=== PATIENT | female | born 1955 | race Caucasian/White ===

== ENCOUNTER 2016-11-04 13:15 | Emergency (ER) | payer OTHER | END 2016-11-04 13:40 | disposition left against medical advice (07) | LOC: UCCORT 13:15 | DX: R09.89 Other specified symptoms and signs involving the circulatory and respiratory systems (principal); Z53.21 Procedure and treatment not carried out due to patient leaving prior to being seen by health care provider ==

== ENCOUNTER 2016-11-04 14:48 | Emergency (ER) | payer BC, OTHER ==
[2016-11-04 15:58] VITALS: BP 117/49
--- NOTE | 2016-11-04 16:42 | UC ---
Respiratory Complaint HPI - HPI Summary HPI Summary: pt presents with worsening productive cough. Pt has history, multiple cancers, COPD and is a Current day smoker - History of Current Complaint Chief Complaint: UCRespiratory Stated Complaint: HEAD AND CHEST CONGESTION Time Seen by Provider: 11/04/16 15:50 Hx Obtained From: Patient ?: No Onset/Duration: Gradual Onset, Lasting Days Timing: Constant Severity Initially: Mild Severity Currently: Moderate Character: Cough: Productive - yellow Aggravating Factors: Exertion, Deep Breaths, Recumbent Position Alleviating Factors: Nothing Associated Signs And Symptoms: Positive: URI - Risk Factors Pulmonary Embolism Risk Factors: Malignancy, Smoking Cardiac Risk Factors: Smoking Pseudomonas Risk Factors: Chronic Lung Disease Tuberculosis Risk Factors: Smoking - Allergies/Home Medications Allergies/Adverse Reactions: Allergies Allergy/AdvReac Type Severity Reaction Status Date / Time Morphine AdvReac Intermediate Nausea And Verified 11/04/16 15:49 Vomiting PMH/Surg Hx/FS Hx/Imm Hx Previously Healthy: Yes Respiratory History: Bronchitis Cancer History: Lung Cancer, Breast Cancer, Other - lymphoma Other Cancer History: lymphoma - Surgical History Surgical History: Yes Surgery Procedure, Year, and Place: PARTIAL HYSTERECTOMY 1986; 1981 CERVICAL CA ; OBSTRUCTION OF THE BOWEL 2004 RESECTION SX; HEMORRHOIDS SX 2011; 2X THROAT POLYPS REMOVED 2002 & 2005 OR 2005;HEIMLICH VAVLE AND CHEST TUBE FOR PUNCTURED RUL LUNG DURING THE BX 2012 @ [facility] [place]; BILAT CATARACT REMOVED 2014 ,. CYST REMOVED FROM LEFT AXILLA 2014. Lt MASTECTOMY 01/12/16 W/ LYMPH NODE DISSECTION. - Family History Known Family History: Positive: Cardiac Disease - Social History Lives: With Family Alcohol Use: None Substance Use Type: Marijuana Substance Use Comment - Amount & Last Used: daily usage Smoking Status (MU): Heavy Every Day Tobacco Smoker Type: Cigarettes Amount Used/How Often: 1 PPD FOR 38 YRS Length of Time of Smoking/Using Tobacco: 1 PPD FOR 38 YRS, CURRENTLY SMOKES 5 CIGARETTES/DAY Have You Smoked in the Last Year: Yes When Did the Patient Quit Smoking/Using Tobacco: 01/2016 - Immunization History Most Recent Tetanus Shot: 2007 Review of Systems Constitutional: Fatigue Skin: Negative Eyes: Negative ENT: Other - nasal congestion Respiratory: Shortness Of Breath, Cough Cardiovascular: Negative Gastrointestinal: Negative Genitourinary: Negative Motor: Negative Neurovascular: Negative Musculoskeletal: Negative Neurological: Negative Psychological: Negative All Other Systems Reviewed And Are Negative: Yes Physical Exam Triage Information Reviewed: Yes Appearance: Ill-Appearing, Thin Vital Signs: Initial Vital Signs Temp 98.7 F 11/04/16 15:41 Pulse 88 11/04/16 15:41 Resp 16 11/04/16 15:41 BP 117/49 11/04/16 15:41 Pulse Ox 99 11/04/16 15:41 Vital Signs Reviewed: Yes ENT: Positive: Nasal congestion Neck exam: Normal Respiratory Exam: Other Respiratory: Positive: Decreased breath sounds - bilateral bases, Wheezing Cardiovascular Exam: Normal Musculoskeletal Exam: Normal Neurological Exam: Normal Psychological Exam: Normal Skin Exam: Normal UC Diagnostic Evaluation - Laboratory O2 Sat by Pulse Oximetry: 99 Respiratory Course/Dx - Course Course Of Treatment: Pt has history of lung cancer. xray impression:IMPRESSION : 1. MARKED HYPERINFLATION CONSISTENT WITH CHRONIC OBSTRUCTIVE PULMONARY DISEASE, NO. EVIDENCE FOR ACUTE FINDING. 2. POSSIBLE RIGHT LUNG PULMONARY NODULE VERSUS A NIPPLE SHADOW. RECOMMEND REPEAT PA CHEST. FILM WITH NIPPLE MARKERS. Pt is scheduled for chest CT and Brain MRI in the next month - Differential Dx/Diagnosis Differential Diagnosis/HQI/PQRI: Bronchitis, Exacerbation Of COPD Provider Diagnoses: bronchitis Discharge - Discharge Plan Condition: Stable Disposition: HOME Prescriptions: Azithromycin TAB* [Zithromax TAB (Z-GLORIA) 250 mg #6 tabs] 250 mg PO DAILY #6 tab Prednisone 20 mg PO DAILY #4 tab Patient Education Materials: Acute Bronchitis (ED) Referrals: Remigio Lindsay MD [Primary Care Provider] - If Needed Claudio Garza MD [Medical Doctor] - If Needed
--- NOTE | 2016-11-04 17:18 | RAD ---
INDICATION: Cough and shortness of breath. COMPARISON: Comparison is made with a prior chest x-ray study from December 29, [address] of the chest from December 29, 2015. TECHNIQUE: Dual-energy PA and lateral views of the chest were obtained. FINDINGS: The heart is within normal limits in size. Mediastinal and hilar contours appear within normal limits. The lungs are markedly hyperinflated with pleural reaction present at the right lung apex which is unchanged from the prior CT of the chest taken in account differences in technique. There is a 5 mm nodular density which projects over the right midlung possibly representing a nipple shadow although nonspecific. The lungs are otherwise clear. No pleural effusion is seen. IMPRESSION: 1. MARKED HYPERINFLATION CONSISTENT WITH CHRONIC OBSTRUCTIVE PULMONARY DISEASE, NO EVIDENCE FOR ACUTE FINDING. 2. POSSIBLE RIGHT LUNG PULMONARY NODULE VERSUS A NIPPLE SHADOW. RECOMMEND REPEAT PA CHEST FILM WITH NIPPLE MARKERS.
== END 2016-11-04 17:02 | disposition home or self-care (01) ==
LOC: UCCORT 14:48
DX: J40 Bronchitis, not specified as acute or chronic (principal); Z85.118 Personal history of other malignant neoplasm of bronchus and lung; Z85.3 Personal history of malignant neoplasm of breast; Z85.72 Personal history of non-Hodgkin lymphomas; Z90.12 Acquired absence of left breast and nipple; Z98.42 Cataract extraction status, left eye; Z98.41 Cataract extraction status, right eye; Z88.5 Allergy status to narcotic agent; F12.90 Cannabis use, unspecified, uncomplicated; F17.210 Nicotine dependence, cigarettes, uncomplicated
CPT/HCPCS: 71020; 99212; G0463

== ENCOUNTER 2017-02-01 15:24 | Emergency (ER) | payer BC ==
[2017-02-01] MEDS ORDERED: Pantoprazole IV* 40 MG IV ONE (15:47)
[2017-02-01] MEDS ORDERED: Ondansetron INJ* 2 MG/ML VIAL IV ONE (15:47)
[2017-02-01] MEDS ORDERED: LORazepam INJ* 2 MG/ML 1 ML VIAL IV PUSH ONE (15:52)
[2017-02-01 16:15] LABS: Hematocrit 37 % (35-47); Hemoglobin 12.4 g/dl (12.0-16.0); Mean Corpuscular HGB Conc 34 g/dl (31-36); Mean Corpuscular Hemoglobin 33 pg (27-31); Mean Corpuscular Volume 98 fL (80-97); Mean Platelet Volume 8 um3 (7.4-10.4); Red Blood Count 3.75 10^6/ul (4.0-5.4); Red Cell Distribution Width 14 % (10.5-15); White Blood Count 6.8 10^3/ul (3.5-10.8)
[2017-02-01] MEDS: NS 0.9% 1000 ML* 2,000 ML IV ONE ×2 (16:15→18:59)
[2017-02-01 16:47] LABS: ALT 11 U/L (7-52); AST 22 U/L (13-39); Albumin 4.1 g/dL (3.2-5.2); Alkaline Phosphatase 44 U/L (34-104); Amylase 23 U/L (29-103); Anion Gap 9 mmol/L (2-11); BUN/Creatinine Ratio 17.8 (8-20); Blood Urea Nitrogen 16 mg/dL (6-24); C Reactive Protein < 1.00 mg/L (< 5.00); CO2 Carbon Dioxide 24 mmol/L (22-32); Calcium 9.1 mg/dL (8.6-10.3); Chloride 100 mmol/L (101-111); EGFR African American 81.9 (>60); EGFR Non-African American 63.7 (>60); Globulin 2.5 g/dL (2-4); Glucose 92 mg/dL (70-100); Lipase < 10 U/L (11.0-82.0); Magnesium 1.6 mg/dL (1.9-2.7); Potassium 3.2 mmol/L (3.5-5.0); Sodium 133 mmol/L (133-145); Total Protein 6.6 g/dL (6.4-8.9)
[2017-02-01 16:48] LABS: Troponin I 0.02 ng/mL (<0.04)
[2017-02-01] MEDS ORDERED: KCL 20 MEQ/100 ML IVPREMIX* 20 MEQ/100 ML BAG IV ONE (16:54)
[2017-02-01] MEDS ORDERED: Magnesium Sulfate 2 GM IV* 2 GM/50 ML BAG IVPB ONE (16:55)
[2017-02-01] MEDS ORDERED: fentaNYL* 50 MCG/ML 2 ML VIAL (100 MCG VIAL) IV SLOW PU ONE ×2 (17:07→18:50)
[2017-02-01] MEDS ORDERED: NS 0.9% 1000 ML* 1,000 ML IV ONE (17:44)
--- NOTE | 2017-02-01 18:54 | ED ---
Mirta Forbes Edward, scribed for Henrique Garsia MD on 02/01/17 at 1536 . Complex/Multi-Sys Presentation - HPI Summary HPI Summary: 61 y/o female presents to the ED c/o constant nausea and intermittent vomiting for the past 4 days. Pt would vomit every 15 minutes for the first three days. Pt c/o diarrhea that started this morning. Pt c/o decreased PO intake. Pt also c /o of ABD pain in the RLQ near midline. The ABD pain is not severe and is aggravated with vomiting and diarrhea. Associated sx: cough, lightheadedness and dizziness. Denies fevers/chills. PMHx 5 time cancer survivor. Former smoker. - History Of Current Complaint Chief Complaint: EDGeneral Time Seen by Provider: 02/01/17 15:32 Hx Obtained From: Patient Onset/Duration: Lasting Days Location: Pain At: - RLQ ABD Associated Signs And Symptoms: Positive: Dizziness, Cough, Nausea, Vomiting, Diarrhea, Abdominal Pain - RLQ, Other - Lightheadedness. Negative: Fever - Allergies/Home Medications Allergies/Adverse Reactions: Allergies Allergy/AdvReac Type Severity Reaction Status Date / Time Morphine AdvReac Intermediate Nausea And Verified 11/04/16 15:49 Vomiting PMH/Surg Hx/FS Hx/Imm Hx Previously Healthy: No Endocrine/Hematology History: Denies: Hx Bone Marrow Disease, Hx Diabetes, Hx Systemic Lupus Erythematosus , Hx Sickle Cell Disease, Hx Anemia, Hx Unexplained Bleeding Cardiovascular History: Denies: Hx Aneurysm, Hx Angina, Hx Angioplasty, Hx Auto Implanted Cardiovert Defib, Hx Cardiac Arrest, Hx Cardiomegaly, Hx Congenital Heart Disease, Hx Congestive Heart Failure, Hx Coronary Artery Disease, Hx Deep Vein Thrombosis, Hx Embolism, Hx Hypercholesterolemia, Hx Hypotension, Hx Hypertension, Hx Pacemaker/ICD, Hx Peripheral Vascular Disease, Hx Rheumatic Fever, Hx Syncope, Hx Valvular Heart Disease, Other Cardiovascular Problems/Disorders Respiratory History: Reports: Hx Chronic Obstructive Pulmonary Disease (COPD), Hx Lung Cancer, Hx Pulmonary Embolism - BLOOD CLOT FROM LUNG CANCER, Other Respiratory Problems/Disorders - COPD DX, HX OF LUNG CANCER 2012 Denies: Hx Asthma, Hx Chronic Bronchitis, Hx Cystic Fibrosis, Hx Pleural Effusion, Hx Pneumonia, Hx Pulmonary Edema, Hx Seasonal Allergies, Hx Sleep Apnea GI History: Reports: Hx Gastroesophageal Reflux Disease - ON MEDS PT. STATES CONTROLLED, Hx Obstructive Bowel - Colon resection, Other GI Disorders - nausea , CONSTIPATION Denies: Hx Cirrhosis, Hx Crohn's Disease, Hx Diverticulosis, Hx Gall Bladder Disease, Hx Gastrointestinal Bleed, Hx Hiatal Hernia, Hx Irritable Bowel, Hx Jaundice, Hx Ileostomy, Hx Pyloric Stenosis, Hx Ulcer History: Denies: Hx Acute Renal Failure, Hx Benign Prostatic Hyperplasia, Hx Chronic Renal Failure, Hx Dialysis, Hx Kidney Infection, Hx Kidney Stones, Hx Renal Disease, Other Problems/Disorders Musculoskeletal History: Reports: Hx Arthritis, Hx Back Problems - T12 FX, Hx Bursitis - RIGHT HIP, Other Musculoskeletal History - FRACTURE T 12 2007 NOT TX AT THE TIME OF ACCIDENT Denies: Hx Rheumatoid Arthritis, Hx Congenital Bone Abnormalities, Hx Fibromyalgia, Hx Gout, Hx Orthopedic Injury, Hx Osteoporosis, Hx Scoliosis, Hx Tendonitis Sensory History: Reports: Hx Cataracts - BILAT, Hx Contacts or Glasses - GLASSES , Other Sensory Impairments - Epilepsy Denies: Hx Eye Injury, Hx Eye Prosthesis, Hx Glaucoma, Hx Macular Degeneration, Hx Vision Problem, Hx Deafness, Hx Hearing Aid, Hx Hearing Problem Opthamlomology History: Reports: Hx Cataracts - BILAT, Hx Contacts or Glasses - GLASSES, Other Sensory Impairments - Epilepsy Denies: Hx Eye Injury, Hx Eye Prosthesis, Hx Glaucoma, Hx Macular Degeneration, Hx Vision Problem Neurological History: Reports: 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 STATES CONTROLLED Denies: Hx Panic Disorder - Cancer History Cancer Type, Location and Year: BREAST,OVARIAN & CERVICAL CA. NONHODGEKINS lymphoma. LUNG and breast CA Hx Chemotherapy: Yes - 05/14 LUNG CANCER TX WITH CHEMO AND RADIATION OVARIAN CANCER Hx Radiation Therapy: Yes - CERIVAL, NON HOTCHINS LYMPHOMA, BREAST - Surgical History Surgery Procedure, Year, and Place: PARTIAL HYSTERECTOMY 1986; 1981 CERVICAL CA ; OBSTRUCTION OF THE BOWEL 2004 RESECTION SX; HEMORRHOIDS SX 2011; 2X THROAT POLYPS REMOVED 2002 & 2004 OR 2005;HEIMLICH VAVLE AND CHEST TUBE FOR PUNCTURED RUL LUNG DURING THE BX 2012 @ [facility] – [place]; BILAT CATARACT REMOVED 2014 ,. CYST REMOVED FROM LEFT AXILLA 2014. Lt MASTECTOMY 01/12/16 W/ LYMPH NODE DISSECTION. Hx Anesthesia Reactions: No Infectious Disease History: Denies: Hx Clostridium Difficile, Hx Hepatitis, Hx Human Immunodeficiency Virus (HIV), Hx Shingles, Hx Tuberculosis, Traveled Outside the [place] in Last 30 Days - Family History Known Family History: Positive: Cardiac Disease - Social History Alcohol Use: None Hx Substance Use: Yes Substance Use Type: Reports: Marijuana Substance Use Comment - Amount & Last Used: daily usage Hx Tobacco Use: Yes Smoking Status (MU): Heavy Every Day Tobacco Smoker Type: Cigarettes Amount Used/How Often: 1 PPD FOR 38 YRS Length of Time of Smoking/Using Tobacco: 1 PPD FOR 38 YRS, CURRENTLY SMOKES 5 CIGARETTES/DAY Have You Smoked in the Last Year: Yes Review of Systems Constitutional: Negative Eyes: Negative ENT: Negative Cardiovascular: Negative Positive: Cough Positive: Abdominal Pain, Vomiting, Diarrhea, Nausea, Other - Decreased PO intake Genitourinary: Negative Musculoskeletal: Negative Skin: Negative Neurological: Other - Lightheadedness and dizziness Psychological: Normal All Other Systems Reviewed And Are Negative: Yes Physical Exam - Summary Physical Exam Summary: The patient is well-nourished in moderate distress and cachectic. The patient seems uncomfortable. The skin is warm and dry and skin color reflects adequate perfusion. HEENT: The head is normocephalic and atraumatic. The pupils are equal and reactive. The conjunctivae are clear and without drainage. Nares are patent and without drainage. Mouth reveals dry mucous membranes and the throat is without erythema and exudate. The external ears are intact. The ear canals are patent and without drainage. The tympanic membranes are intact. Neck is supple with full range of motion and non-tender. There are no carotid bruits. There is no neck vein distension. Respiratory: Chest is non-tender. Lungs are clear to auscultation and breath sounds are symmetrical and equal. Cardiovascular: Hear is regular rate and rhythm. There is no murmur or rub auscultated. There is no peripheral edema and pulses are symmetrical and equal. Abdomen: The abdomen is soft and tender around the umbilicus. There are normal bowel sounds heard in all four quadrants and there is no organomegaly palpated. Musculoskeletal: There is no back pain noted. Extremities are non-tender with full range of motion. There is decreased capillary refill. There is no peripheral edema or calf tenderness elicited. Neurological: Patient is alert and oriented to person, place and time. The patient has symmetrical motor strength in all four extremities. Cranial nerves are grossly intact. Deep tendon reflexes are symmetrical and equal in all four extremities. Skin: There is decreased skin turgor. Psychiatric: The patient has an appropriate affect and does not exhibit any anxiety or depression. Triage Information Reviewed: Yes Vital Signs On Initial Exam: Initial Vitals Temp Pulse Resp BP Pulse Ox 97.3 F 85 20 137/99 97 02/01/17 15:27 02/01/17 15:27 02/01/17 15:27 02/01/17 15:27 02/01/17 15:27 Vital Signs Reviewed: Yes Diagnostics - Vital Signs Vital Signs Temp Pulse Resp BP Pulse Ox 02/01/17 15:27 97.3 F 85 20 137/99 97 - Laboratory Lab Results: Lab Results 02/01/17 02/01/17 02/01/17 Range/Units 15:57 15:57 15:57 WBC 6.8 (3.5-10.8) 10^3/ul RBC 3.75 L (4.0-5.4) 10^6/ul Hgb 12.4 (12.0-16.0) g/dl Hct 37 (35-47) % MCV 98 H (80-97) fL MCH 33 H (27-31) pg MCHC 34 (31-36) g/dl RDW 14 (10.5-15) % Plt Count 314 (150-450) 10^3/ul MPV 8 (7.4-10.4) um3 Neut % (Auto) 72.7 (38-83) % Lymph % (Auto) 13.9 L (25-47) % [place] % (Auto) 12.9 H (1-9) % Eos % (Auto) 0.2 (0-6) % Baso % (Auto) 0.3 (0-2) % Absolute Neuts (auto) 5.0 (1.5-7.7) 10^3/ul Absolute Lymphs (auto) 1.0 (1.0-4.8) 10^3/ul Absolute Monos (auto) 0.9 H (0-0.8) 10^3/ul Absolute Eos (auto) 0 (0-0.6) 10^3/ul Absolute Basos (auto) 0 (0-0.2) 10^3/ul Absolute Nucleated RBC 0 10^3/ul Nucleated RBC % 0 Sodium 133 (133-145) mmol/L Potassium 3.2 L (3.5-5.0) mmol/L Chloride 100 L (101-111) mmol/L Carbon Dioxide 24 (22-32) mmol/L Anion Gap 9 (2-11) mmol/L BUN 16 (6-24) mg/dL Creatinine 0.90 (0.51-0.95) mg/dL Est GFR ( Amer) 81.9 (>60) Est GFR (Non-Af Amer) 63.7 (>60) BUN/Creatinine Ratio 17.8 (8-20) Glucose 92 (70-100) mg/dL Lactic Acid 1.0 (0.5-2.0) mmol/L Calcium 9.1 (8.6-10.3) mg/dL Magnesium 1.6 L (1.9-2.7) mg/dL Total Bilirubin 1.00 (0.2-1.0) mg/dL AST 22 (13-39) U/L ALT 11 (7-52) U/L Alkaline Phosphatase 44 (34-104) U/L Troponin I 0.02 (<0.04) ng/mL C-Reactive Protein < 1.00 (< 5.00) mg/L Total Protein 6.6 (6.4-8.9) g/dL Albumin 4.1 (3.2-5.2) g/dL Globulin 2.5 (2-4) g/dL Albumin/Globulin Ratio 1.6 (1-3) Amylase 23 L (29-103) U/L Lipase < 10 L (11.0-82.0) U/L Result Diagrams: 02/01/17 15:57 02/01/17 15:57 Lab Statement: Any lab studies that have been ordered have been reviewed, and results considered in the medical decision making process. - EKG 1 EKG Rhythm: Sinus Rhythm - @ [address] Segment: Normal EKG Interpretation: 16:15 - Poor R wave progression. Normal axis. No STEMI Re-Evaluation - Re-Evaluation 1 Re-Evaluation Time: 17:06 Change: Unchanged - Still has ABD pain 2 Re-Evaluation Time: 18:15 Change: Improved - Pt is feeling better. Nausea has improved. Pending CT results for disposition Complex Multi-Symp Course/Dx Assessment/Plan: 61 y/o female presents to the ED c/o constant nausea and intermittent vomiting for the past 4 days. Pt would vomit every 15 minutes for the first three days. Pt c/o diarrhea that started this morning. Pt c/o decreased PO intake. Pt also c/o of ABD pain in the RLQ near midline. The ABD pain is not severe and is aggravated with vomiting and diarrhea. Associated sx: cough, lightheadedness and dizziness. Denies fevers/chills. PMHx 5 time cancer survivor. Former smoker. Test results - Potassium 3.2, Magnesium 1.6; will be given both in the ED. EKG 16:15 - SR @ 80 BPM. Poor R wave progression. Normal axis. No STEMI, normal ST segment. Pt will be signed out to Dr. Hancock at shift change pending CT results and UA. - Diagnoses Differential Diagnoses/HQI/PQRI: Metabolic Abnormality, Urinary Tract Infection , Other - sbo, colitis, peptic ulcer disease Provider Diagnoses: Abdominal pain, Dehydration Discharge - Discharge Plan Condition: Stable Disposition: OTHER Discharge Disposition Comment: Sign out to Dr. Hancock at shift change pending CT and urine results. Referrals: Remigio Lindsay MD [Primary Care Provider] - The documentation as recorded by the Mirta brown Edward accurately reflects the service I personally performed and the decisions made by me, Henrique Garsia MD.
[2017-02-01] MEDS ORDERED: Iohexol 300* (CONTRAST) 10 ML SDV IV ONE (19:14)
[2017-02-01 19:15] LABS: Urine Bilirubin Negative (Negative); Urine Glucose Negative (Negative); Urine Nitrite Negative (Negative)
--- NOTE | 2017-02-01 19:54 | RAD ---
INDICATION: Abdominal pain. COMPARISON: Comparison is made with a prior CT of the abdomen and pelvis from December 12, 2016. Correlation is also made with a prior study from December 29, 2015. TECHNIQUE: A CT scan of the abdomen and pelvis was performed with intravenous and oral contrast following intravenous injection of 57 ml of Omnipaque 300 nonionic contrast. Contiguous axial sections were obtained from the lung bases through the symphysis pubis. Images were reconstructed in the coronal and sagittal planes. FINDINGS: The lung bases are clear. No pleural effusion is present. The liver and spleen are normal in size. There is a small area of decreased attenuation present in the anterior aspect of the left hepatic lobe medial segment which appears unchanged from the study from 2015 and likely represents focal fatty infiltration. No other focal abnormalities are seen. No calcified gallstones are noted. The pancreatic duct appears moderately distended which is a new finding from the prior exam. No intra or extra hepatic ductal distention is seen. No focal pancreatic abnormality is noted. The fat planes around the pancreas appear maintained. The kidneys and adrenal glands are normal in size. No hydronephrosis is seen. No significant focal renal abnormality is seen. The aorta is normal in caliber with moderate calcific plaque present. There is an enlarged retrocrural lymph node on the right side measuring 0.9 cm in transverse dimension which appears unchanged. No other enlarged retroperitoneal abdominal or pelvic lymph nodes are seen. The stomach, small and large bowel appear nondistended. The appendix is visualized. There is moderate sigmoid diverticulosis without evidence for diverticulitis. The patient is status post hysterectomy. No free intraperitoneal air or fluid is seen. No significant focal osseous abnormality is seen. IMPRESSION: 1. NEW PANCREATIC DUCTAL DISTENTION. NO MASS IS SEEN. DIFFERENTIAL DIAGNOSIS WOULD INCLUDE PANCREATITIS VERSUS AN OBSTRUCTING PANCREATIC LESION. CONSIDER AN OUTPATIENT CT OF THE PANCREAS STUDY FOR FURTHER EVALUATION. 2. ENLARGED RETROCRURAL LYMPH NODE, UNCHANGED. 3. MODERATE SIGMOID DIVERTICULOSIS WITHOUT EVIDENCE FOR DIVERTICULITIS.
[2017-02-01 23:02] VITALS: BP 102/52
== END 2017-02-01 23:55 ==
LOC: ED 15:24
DX: R10.31 Right lower quadrant pain (principal); E86.0 Dehydration; R11.2 Nausea with vomiting, unspecified; R05 Cough; R42 Dizziness and giddiness; F17.210 Nicotine dependence, cigarettes, uncomplicated
CPT/HCPCS: 36415; 74177; 80053; 81003; 82150; 83605; 83690; 83735; 84484; 85025; 86140; 93005; 99282; J2060; J2405; J3010; J3475; J3480; Q9967

== ENCOUNTER 2017-05-05 13:09 | Inpatient (IN) | payer BC ==
[2017-05-05] MEDS ORDERED: HYDROmorphone INJ* 2 MG/ML CARPUJECT SYRINGE IV SLOW PU PRN (13:17)
[2017-05-05] MEDS ORDERED: Bisacodyl SUPP* 10 MG SUPP PR PRN (13:29)
[2017-05-05] MEDS: Heparin VIAL(*) 5000 UNITS/ML VIAL (FIVE THOUSAND) SUBCUT SCH ×2 (14:45→21:01)
[2017-05-05] MEDS: NS 0.9% 1000 ML* 1,000 ML IV SCH (14:50)
[2017-05-05] MEDS: Ondansetron INJ* 2 MG/ML VIAL IV PRN (15:11)
[2017-05-05] MEDS: PROCHLORPERAZINE INJ 5 MG/ML 2 ML VIAL IV PRN (16:38)
[2017-05-05] MEDS: Famotidine TAB* 20 MG PO SCH (18:46)
[2017-05-05] MEDS: HYDROmorphone INJ* 1 MG/ML CARPUJECT SYRINGE IV SLOW PU PRN (18:46)
[2017-05-05] MEDS: Mometasone/Formoter 200/5 MDI INH SCH (19:16)
[2017-05-05] MEDS: BuPROPion XL* 150 MG TAB.XL PO SCH (21:00)
[2017-05-05] MEDS: Docusate CAP* 100 MG PO SCH (21:00)
[2017-05-05] MEDS: Ondansetron INJ* 2 MG/ML VIAL IV SCH (21:00)
[2017-05-05] MEDS: traZODone TAB* 50 MG TAB PO SCH (21:00)
[2017-05-05] MEDS: oxyCODONE SR TAB(*) 15 MG TAB.SR PO SCH (21:32)
[2017-05-05] MEDS: Albuterol HFA INHALER* 8 gm MDI INH PRN (21:43)
[2017-05-06] MEDS: LORazepam INJ* 2 MG/ML 1 ML VIAL IV PUSH PRN ×3 (02:39→11:41)
[2017-05-06] MEDS: Heparin VIAL(*) 5000 UNITS/ML VIAL (FIVE THOUSAND) SUBCUT SCH ×3 (04:56→22:05)
[2017-05-06] MEDS: HYDROmorphone INJ* 1 MG/ML CARPUJECT SYRINGE IV SLOW PU PRN ×4 (05:35→18:11)
[2017-05-06 05:53] LABS: Hematocrit 30 % (35-47); Hemoglobin 9.8 g/dl (12.0-16.0); Mean Corpuscular HGB Conc 33 g/dl (31-36); Mean Corpuscular Hemoglobin 29 pg (27-31); Mean Corpuscular Volume 89 fL (80-97); Mean Platelet Volume 8 um3 (7.4-10.4); Red Blood Count 3.36 10^6/ul (4.0-5.4); Red Cell Distribution Width 18 % (10.5-15); White Blood Count 5.3 10^3/ul (3.5-10.8)
[2017-05-06] MEDS: Ondansetron INJ* 2 MG/ML VIAL IV PRN ×2 (05:57→18:11)
[2017-05-06 06:08] LABS: Albumin 3.4 g/dL (3.2-5.2); BUN/Creatinine Ratio 12.5 (8-20); Calcium 9.2 mg/dL (8.6-10.3); EGFR African American 69.3 (>60); EGFR Non-African American 53.9 (>60); Total Bilirubin 0.3 mg/dL (0.2-1.0); Total Protein 6.4 g/dL (6.4-8.9)
--- NOTE | 2017-05-06 08:06 | RAD ---
Indication: Assess RIGHT apical pulmonary mass for feasibility of ultrasound-guided biopsy. Comparison: May 01, 2017 PET/CT and April 21, [address] Technique: With the patient sitting leaning forward over a table with the shoulders rotated anteriorly ultrasound of the RIGHT first and second intercostal spaces was performed with limited ultrasound of the LEFT side for comparison. REPORT AND IMPRESSION: The known dominant RIGHT apical mass contiguous with the pleura is not conspicuous by ultrasound due to limited acoustic window at the apex of the thorax. On further review of the PET/CT innumerable segmental regions of subpleural tumor are noted along the posterior RIGHT thorax through the lung base. Given more suitable acoustic window at the more planar posterior thorax at least one of these subpleural nodules is likely adequately conspicuous via an intercostal space to facilitate ultrasound-guided fine-needle aspiration. This was not definitively confirmed while the patient was in the ultrasound department. Examination and assessment discussed with Dr. Jose Elias ARGUELLES 05/05/2017.
[2017-05-06] MEDS: Ondansetron INJ* 2 MG/ML VIAL IV SCH ×2 (08:36→20:31)
[2017-05-06] MEDS: Mometasone/Formoter 200/5 MDI INH SCH ×2 (08:44→20:28)
[2017-05-06] MEDS: Docusate CAP* 100 MG PO SCH ×3 (09:11→21:14)
[2017-05-06] MEDS: oxyCODONE SR TAB(*) 15 MG TAB.SR PO SCH ×2 (09:11→21:15)
[2017-05-06] MEDS: Bisoprolol TAB* 5 MG PO SCH ×3 (09:11→20:29)
[2017-05-06] MEDS: BuPROPion XL* 150 MG TAB.XL PO SCH ×3 (09:11→20:30)
[2017-05-06] MEDS ORDERED: LORazepam INJ* 2 MG/ML 1 ML VIAL IV PUSH ONE (11:40)
[2017-05-06] MEDS: PROCHLORPERAZINE INJ 5 MG/ML 2 ML VIAL IV PRN (12:04)
[2017-05-06] MEDS ORDERED: Gadoteridol* (CONTRAST) 279.3 MG/ML 10 ML IV ONE (14:11)
--- NOTE | 2017-05-06 14:35 | RAD ---
HISTORY: Right-sided weakness, breast cancer, ovarian cancer, cervical cancer, lymphoma COMPARISONS: January 01, 2016 TECHNIQUE: The following sequences were obtained of the head: Sagittal T1-weighted images, axial T2-weighted images, axial FLAIR images, axial susceptibility weighted images, axial T1-weighted images. Additionally, axial diffusion-weighted images were obtained with calculated apparent diffusion coefficients. FINDINGS: HEMORRHAGE/INFARCT: There has been interval development of multiple hemorrhagic versus calcified masses further described below. Elsewhere, there is no hemorrhage or acute infarct. MASSES/SHIFT: There has been interval development of multiple high T1 signal masses suggestive of blood product versus mineralization. The largest is noted within the left precentral gyrus towards the apex measuring 1.2 cm in size. There is associated vasogenic edema. There is no shift. EXTRA-AXIAL SPACES/MENINGES: There are no extra-axial fluid collections. SULCI AND VENTRICLES: The sulci and ventricles are normal in size and position for the patient's stated age. CEREBRUM: There has been interval development of multiple high T1 signal masses including of the right middle frontal gyrus, and left precentral gyrus, measuring up to 1.2 cm in size. There is associated vasogenic edema and extensive mineralization of the adjacent white matter. There is stable bilateral inferior frontal encephalomalacia consistent with remote trauma. BRAINSTEM: There are no focal parenchymal abnormalities. CEREBELLUM: There is an enhancing mass of the left inferior cerebellum with a rim of high T1 signal. This measures approximately 0.9 cm in size. The cerebellar tonsils are normal in size and position. SELLA: The sella is normal. PINEAL: The pineal region is clear. CP ANGLE/TEMPORAL BONES: The labyrinthine structures are grossly normal. VESSELS: Normal flow-voids are noted within the visualized vertebral vasculature. DIFFUSION ABNORMALITIES: There are no diffusion abnormalities. PARANASAL SINUSES/MASTOIDS: The paranasal sinuses are clear. ORBITS: The orbits are unremarkable. BONES AND SOFT TISSUE: No bone or soft tissue abnormalities are noted. OTHER: None IMPRESSION: 1. THERE HAS BEEN INTERVAL DEVELOPMENT OF MULTIPLE MASSES OF THE CEREBRAL HEMISPHERES BILATERALLY IN THE LEFT INFERIOR CEREBELLUM, MOST CONSISTENT WITH METASTATIC DISEASE. 2. THESE LESIONS, AND THE ASSOCIATED ADJACENT WHITE MATTER, DEMONSTRATES HIGH PRECONTRAST T1 SIGNAL SUGGESTIVE OF BLOOD PRODUCT VERSUS MINERALIZATION. 3. THE LARGEST LESION IS NOTED WITHIN THE LEFT PRECENTRAL GYRUS MEASURING UP TO 1.2 CM. THERE IS NO SHIFT.
--- NOTE | 2017-05-06 15:15 | RAD ---
HISTORY: Right-sided weakness, cancer COMPARISONS: PET CT dated May 01, 2017, MRI of the cervical spine dated May 25, 2008, MRI dated October 11, 2008 of the thoracic spine, MRI of the brain dated May 06, 2017 TECHNIQUE: The following sequences were obtained of the full spine: Sagittal T1-weighted images, sagittal and coronal T2-weighted images, sagittal inversion recovery images, axial T1 and T2-weighted images, sagittal and axial postcontrast T1-weighted images. FINDINGS: BRAIN AND SPINAL CORD: As noted on the MRI of the brain performed on same date, there is an enhancing lesion with associated mineralization versus blood product of the left inferior cerebellum. ALIGNMENT: The alignment is normal. VERTEBRAL BODIES: There is multilevel anterolateral marginal osteophyte formation. There is hematopoietic conversion of fatty marrow. JOINTS: There is osteoarthritis of the uncovertebral and facet joints of the costovertebral articulations. MUSCULATURE: Unremarkable INTERVERTEBRAL DISCS: There is diffuse loss of intervertebral disc height and T2 signal throughout the spine. AXIAL IMAGES: On axial images, there is moderate narrowing of the cervical spine at C3-C4, C4-C5, C5-C6, and C6-C7. There is diffuse moderate neuroforaminal narrowing bilaterally of the cervical spine. There is no significant neural foraminal narrowing or central canal stenosis of the thoracic spine. There is moderate bilateral neural foraminal narrowing of the lower lumbar spine. There is no significant central canal stenosis of the lumbar spine. SOFT TISSUES: There are enhancing lesions of the right lung corresponding to the findings noted on PET/CT. OTHER: None. IMPRESSION: 1. NOTED ON THE ACCOMPANYING MRI OF THE BRAIN, THERE IS AN ENHANCING LESION OF THE LEFT INFERIOR CEREBELLUM CONSISTENT WITH METASTATIC DISEASE. 2. DEGENERATIVE DISC DISEASE AND OSTEOARTHRITIS. 3. THERE IS MODERATE NARROWING OF THE CENTRAL CANAL ALONG THE THE CERVICAL SPINE. 4. THERE ARE NO FINDINGS TO SUGGEST METASTATIC DISEASE TO THE SPINE, OR EPIDURAL EXTENSION OF TUMOR 5. THERE IS HEMATOPOIETIC CONVERSION OF THE FATTY MARROW. .
[2017-05-06] MEDS ORDERED: D5W IVPB ONE (17:00)
[2017-05-06] MEDS ORDERED: DEXAMETHASONE IVPB ONE (17:00)
[2017-05-06] MEDS: Famotidine TAB* 20 MG PO SCH (17:25)
[2017-05-06] MEDS ORDERED: Dexamethasone IV* 4 MG/ML 5 ML VIAL (20 MG) ONE (20:24)
[2017-05-06] MEDS: traZODone TAB* 50 MG TAB PO SCH (20:30)
[2017-05-06] MEDS: NS 0.9% 1000 ML* 1,000 ML IV SCH (21:14)
[2017-05-07] MEDS: Albuterol HFA INHALER* 8 gm MDI INH PRN ×2 (00:10→05:42)
[2017-05-07] MEDS: LORazepam INJ* 2 MG/ML 1 ML VIAL IV PUSH PRN ×4 (01:22→23:27)
[2017-05-07] MEDS: Heparin VIAL(*) 5000 UNITS/ML VIAL (FIVE THOUSAND) SUBCUT SCH (05:19)
[2017-05-07] MEDS: BuPROPion XL* 150 MG TAB.XL PO SCH ×2 (07:17→20:58)
[2017-05-07] MEDS: Mometasone/Formoter 200/5 MDI INH SCH ×2 (07:51→21:19)
[2017-05-07] MEDS: oxyCODONE SR TAB(*) 15 MG TAB.SR PO SCH ×3 (08:16→21:51)
[2017-05-07] MEDS: Dexamethasone IV* 4 MG/ML 1 ML (4 MG) IV SLOW PU SCH ×3 (08:16→20:56)
[2017-05-07] MEDS: Ondansetron INJ* 2 MG/ML VIAL IV SCH ×3 (08:16→20:56)
[2017-05-07] MEDS: Docusate CAP* 100 MG PO SCH ×3 (08:17→20:57)
[2017-05-07] MEDS ORDERED: Dexamethasone IV* 8 MG in NS 0.9% 50 ML* 50 ML IVPB SCH (09:00)
[2017-05-07 10:03] LABS: Hematocrit 31 % (35-47); Hemoglobin 9.9 g/dl (12.0-16.0); Mean Corpuscular HGB Conc 32 g/dl (31-36); Mean Corpuscular Hemoglobin 29 pg (27-31); Mean Corpuscular Volume 89 fL (80-97); Mean Platelet Volume 8 um3 (7.4-10.4); Red Blood Count 3.43 10^6/ul (4.0-5.4); Red Cell Distribution Width 20 % (10.5-15); White Blood Count 3.1 10^3/ul (3.5-10.8)
[2017-05-07 10:07] LABS: Add Diff/Slide Review? Slide Review Added; Comments Flag Yes
[2017-05-07 10:14] LABS: Albumin 3.5 g/dL (3.2-5.2); BUN/Creatinine Ratio 11.3 (8-20); Calcium 9.8 mg/dL (8.6-10.3); EGFR African American 67.8 (>60); EGFR Non-African American 52.7 (>60); Potassium 4.2 mmol/L (3.5-5.0); Total Bilirubin 0.3 mg/dL (0.2-1.0); Total Protein 6.5 g/dL (6.4-8.9)
--- NOTE | 2017-05-07 10:27 | PN ---
Progress Note - Progress Note Date of Service: 05/07/17 SOAP: Subjective: overall feeling a little better. right side a little stronger than last night but still very weak. no BM since friday and PRN suppository not administered as she has refused. right arm slightly swollen as well. pain under much better control here. Objective: Vital Signs Temp Pulse Resp BP Pulse Ox 97.7 F 90 16 164/81 94 05/06/17 23:15 05/07/17 07:53 05/07/17 09:31 05/07/17 05:12 05/07/17 07:53 perr eomi op dry exp wheeze throughout, dec bs right side s1 s2 nl soft nt +Bs no LE edema right arm trace edema 2/5 strength right arm and leg Laboratory Results - last 24 hr 05/07/17 05/07/17 09:21 09:31 WBC 3.1 L RBC 3.43 L Hgb 9.9 L Hct 31 L MCV 89 MCH 29 MCHC 32 RDW 20 H Plt Count 314 MPV 8 Neut % (Auto) 80.6 Lymph % (Auto) 8.9 L [place] % (Auto) 10.2 H Eos % (Auto) 0 Baso % (Auto) 0.3 Absolute Neuts (auto) 2.5 Absolute Lymphs (auto) 0.3 L Absolute Monos (auto) 0.3 Absolute Eos (auto) 0 Absolute Basos (auto) 0 Absolute Nucleated RBC 0 Nucleated RBC % 0.1 Sodium 135 Potassium 4.2 Chloride 99 L Carbon Dioxide 27 Anion Gap 9 BUN 12 Creatinine 1.06 H Est GFR ( Amer) 67.8 Est GFR (Non-Af Amer) 52.7 BUN/Creatinine Ratio 11.3 Glucose 124 H Calcium 9.8 Total Bilirubin 0.30 AST 15 ALT 8 Alkaline Phosphatase 70 Total Protein 6.5 Albumin 3.5 Globulin 3.0 Albumin/Globulin Ratio 1.2 Albuterol (Ventolin Hfa Inhaler*) 2 puff INH Q6H PRN PRN Reason: WHEEZING Last Admin: 05/07/17 05:42 Dose: 2 puff Bisacodyl (Dulcolax Supp*) 10 mg [place] DAILY PRN PRN Reason: CONSTIPATION Bisoprolol Fumarate (Zebeta Tab*) 2.5 mg PO 2100 [facility] Last Admin: 05/06/17 20:29 Dose: 2.5 mg Bupropion HCl (Wellbutrin Xl *) 150 mg PO BID [facility] PRN Reason: Protocol Last Admin: 05/07/17 07:17 Dose: Not Given Dexamethasone Sodium Phosphate (Decadron Iv*) 8 mg IV SLOW PU BID [facility] Last Admin: 05/07/17 09:16 Dose: 8 mg Docusate Sodium (Colace Cap*) 100 mg PO BID [facility] Last Admin: 05/07/17 09:16 Dose: 100 mg Famotidine (Pepcid Tab*) 20 mg PO QPM [facility] Last Admin: 05/06/17 17:25 Dose: 20 mg Heparin Sodium (Porcine) (Heparin Vial(*)) 5,000 units SUBCUT Q8HR [facility] Last Admin: 05/07/17 05:19 Dose: Not Given Hydromorphone HCl (Dilaudid Injic*) 1 mg IV SLOW PU Q4H PRN PRN Reason: PAIN Last Admin: 05/06/17 18:11 Dose: 1 mg Sodium Chloride (Ns 0.9% 1000 Ml*) 1,000 mls @ 75 mls/hr IV PER RATE [facility] Last Admin: 05/06/17 21:14 Dose: 75 mls/hr Lorazepam (Ativan Inj*) 0.5 mg IV PUSH Q4H PRN PRN Reason: Anxiety/nausea Last Admin: 05/07/17 05:30 Dose: 0.5 mg Mometasone Furoate/Formoterol Fumar (Dulera 200/5 Mdi*) 2 puff INH BID [facility] Last Admin: 05/07/17 07:51 Dose: 2 inh Ondansetron HCl (Zofran Inj*) 4 mg IV Q8H PRN PRN Reason: NAUSEA Last Admin: 05/06/17 18:11 Dose: 4 mg Ondansetron HCl (Zofran Inj*) 4 mg IV BID [facility] Last Admin: 05/07/17 09:13 Dose: 4 mg Oxycodone HCl (Oxycontin(*)) 15 mg PO Q12HR [facility] Last Admin: 05/07/17 09:16 Dose: 15 mg Polyethylene Glycol/Electrolytes (Miralax*) 17 gm PO DAILY [facility] Prochlorperazine Edisylate (Compazine Inj*) 10 mg IV Q6H PRN PRN Reason: NAUSEA/VOMITING Last Admin: 05/06/17 12:04 Dose: 10 mg Trazodone HCl (Desyrel Tab*) 50 mg PO BEDTIME [facility] Last Admin: 05/06/17 20:30 Dose: 50 mg Assessment: 61 yo F w PMH of limited stage small cell lung cancer now with likely recurrent disease presenting with progressive right sided weakness and found to have brain mets. Plan: Brain Mets: cont IV steroids urgent brain radiation PT consult, unclear yet how much recovery she will have, particularly as the leg has been weak for several days recurrent cancer: likely small cell carcinoma but at risk for nonsmall cell as well discussed with Dr. Moctezuma and will put in for inpatient lung biopsy to facilitate diagnosis and direct care hold heparin sc pending this COPD: wheezing today, will add nebulizer pain: cont current regimen as well controlled constipation: narcotic induced add miralax standing DNR
[2017-05-07] MEDS: Polyethylene Glycol 3350* 17 GM PACKET PO SCH (10:34)
--- NOTE | 2017-05-07 13:41 | RAD ---
Indication: Brain mass. CT of the brain performed for radiation therapy planning. Left frontal lobe as well other enhancing lesions were noted on the prior MRI of the left cerebellar lesion. IMPRESSION: CT of the brain performed for radiation therapy planning.
[2017-05-07] MEDS: NS 0.9% 1000 ML* 1,000 ML IV SCH (15:43)
[2017-05-07] MEDS: Famotidine TAB* 20 MG PO SCH (17:45)
[2017-05-07] MEDS: Bisoprolol TAB* 5 MG PO SCH (20:57)
[2017-05-07] MEDS: traZODone TAB* 50 MG TAB PO SCH (20:58)
[2017-05-08 06:54] LABS: Hematocrit 27 % (35-47); Mean Corpuscular HGB Conc 34 g/dl (31-36); Mean Corpuscular Hemoglobin 30 pg (27-31); Mean Corpuscular Volume 89 fL (80-97); Mean Platelet Volume 8 um3 (7.4-10.4); Red Blood Count 3.02 10^6/ul (4.0-5.4); Red Cell Distribution Width 20 % (10.5-15); White Blood Count 4.9 10^3/ul (3.5-10.8)
[2017-05-08 07:44] LABS: Albumin 3.2 g/dL (3.2-5.2); Calcium 9.2 mg/dL (8.6-10.3); EGFR African American 66.3 (>60); EGFR Non-African American 51.6 (>60); Globulin 2.3 g/dL (2-4); Potassium 4.6 mmol/L (3.5-5.0); Total Bilirubin 0.3 mg/dL (0.2-1.0); Total Protein 5.5 g/dL (6.4-8.9)
[2017-05-08] MEDS: Ondansetron INJ* 2 MG/ML VIAL IV SCH ×2 (07:59→21:42)
[2017-05-08] MEDS: Dexamethasone IV* 4 MG/ML 1 ML (4 MG) IV SLOW PU SCH ×2 (08:01→20:42)
[2017-05-08] MEDS: Docusate CAP* 100 MG PO SCH ×2 (08:03→20:42)
[2017-05-08] MEDS: Polyethylene Glycol 3350* 17 GM PACKET PO SCH (08:03)
[2017-05-08] MEDS: BuPROPion XL* 150 MG TAB.XL PO SCH ×2 (08:04→21:42)
[2017-05-08] MEDS: oxyCODONE SR TAB(*) 15 MG TAB.SR PO SCH ×2 (08:40→15:31)
[2017-05-08] MEDS: Mometasone/Formoter 200/5 MDI INH SCH ×2 (09:05→20:14)
--- NOTE | 2017-05-08 10:15 | PN ---
Progress Note - Progress Note Date of Service: 05/08/17 SOAP: Subjective: []Requesting nebulizers which she uses at home, inhalers helps but wants something else. Still lots of right sided chest pain, constant and averages 5/10. Gets a little relief from long acting. At home did not tolerate PO dilaudid. Used oxycodone in the past with minimal effect. Right arm stronger than two days ago, but still limited movement. Can't lift right leg. Denies PAINTING and dizziness. Still no BM, but has been passing gas. No abd. pain, but will get nauseated and she thinks this is from pain meds. Eating better today so far. Medications: Albuterol (Ventolin Hfa Inhaler*) 2 puff INH Q6H PRN PRN Reason: WHEEZING Last Admin: 05/07/17 05:42 Dose: 2 puff Bisacodyl (Dulcolax Supp*) 10 mg [place] DAILY PRN PRN Reason: CONSTIPATION Bisoprolol Fumarate (Zebeta Tab*) 2.5 mg PO 2100 [facility] Last Admin: 05/07/17 20:57 Dose: 2.5 mg Bupropion HCl (Wellbutrin Xl *) 150 mg PO BID [facility] PRN Reason: Protocol Last Admin: 05/08/17 08:04 Dose: Not Given Dexamethasone Sodium Phosphate (Decadron Iv*) 8 mg IV SLOW PU BID [facility] Last Admin: 05/08/17 08:01 Dose: 8 mg Docusate Sodium (Colace Cap*) 100 mg PO BID [facility] Last Admin: 05/08/17 08:03 Dose: 100 mg Famotidine (Pepcid Tab*) 20 mg PO QPM [facility] Last Admin: 05/07/17 17:45 Dose: 20 mg Hydromorphone HCl (Dilaudid Injic*) 1 mg IV SLOW PU Q4H PRN PRN Reason: PAIN Last Admin: 05/06/17 18:11 Dose: 1 mg Sodium Chloride (Ns 0.9% 1000 Ml*) 1,000 mls @ 75 mls/hr IV PER RATE [facility] Last Admin: 05/07/17 15:43 Dose: 75 mls/hr Lorazepam (Ativan Inj*) 0.5 mg IV PUSH Q4H PRN PRN Reason: Anxiety/nausea Last Admin: 12/06/17 23:27 Dose: 0.5 mg Mometasone Furoate/Formoterol Fumar (Dulera 200/5 Mdi*) 2 puff INH BID [facility] Last Admin: 05/08/17 09:05 Dose: 2 inh Ondansetron HCl (Zofran Inj*) 4 mg IV Q8H PRN PRN Reason: NAUSEA Last Admin: 05/06/17 18:11 Dose: 4 mg Ondansetron HCl (Zofran Inj*) 4 mg IV BID [facility] Last Admin: 05/08/17 07:59 Dose: 4 mg Oxycodone HCl (Oxycontin(*)) 15 mg PO Q12HR [facility] Last Admin: 05/08/17 08:40 Dose: 15 mg Polyethylene Glycol/Electrolytes (Miralax*) 17 gm PO DAILY [facility] Last Admin: 05/08/17 08:03 Dose: 17 gm Prochlorperazine Edisylate (Compazine Inj*) 10 mg IV Q6H PRN PRN Reason: NAUSEA/VOMITING Last Admin: 05/06/17 12:04 Dose: 10 mg Trazodone HCl (Desyrel Tab*) 50 mg PO BEDTIME [facility] Last Admin: 05/07/17 20:58 Dose: 50 mg Objective: [] Vital Signs Temp Pulse Resp BP Pulse Ox 97.6 F 78 16 126/71 99 05/08/17 07:36 05/08/17 09:21 05/08/17 09:21 05/08/17 07:36 05/08/17 09:21 A&Ox3, EOMI, converses easily Right arm with minimal AROM, 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 of foot flexion, limited extension strength 2/4 HRR, no murmur noted LS dim. with harsh wet non-productive cough +BS, abd. soft and non-tender +PP=bilat., no edema Laboratory Results - last 24 hr 05/07/17 05/08/17 05/08/17 09:31 06:11 06:11 WBC 4.9 RBC 3.02 L Hgb 9.0 L Hct 27 L MCV 89 MCH 30 MCHC 34 RDW 20 H Plt Count 339 MPV 8 Neut % (Auto) 89.2 H Lymph % (Auto) 5.1 L [place] % (Auto) 5.6 Eos % (Auto) 0 Baso % (Auto) 0.1 Absolute Neuts (auto) 4.4 Absolute Lymphs (auto) 0.2 L Absolute Monos (auto) 0.3 Absolute Eos (auto) 0 Absolute Basos (auto) 0 Absolute Nucleated RBC 0 Nucleated RBC % 0 INR (Anticoag Therapy) 0.95 APTT 27.1 Sodium 135 139 Potassium 4.2 4.6 Chloride 99 L 103 Carbon Dioxide 27 28 Anion Gap 9 8 BUN 12 13 Creatinine 1.06 H 1.08 H Est GFR ( Amer) 67.8 66.3 Est GFR (Non-Af Amer) 52.7 51.6 BUN/Creatinine Ratio 11.3 12.0 Glucose 124 H 129 H Calcium 9.8 9.2 Total Bilirubin 0.30 0.30 AST 15 16 ALT 8 8 Alkaline Phosphatase 70 64 Total Protein 6.5 5.5 L Albumin 3.5 3.2 Globulin 3.0 2.3 Albumin/Globulin Ratio 1.2 1.4 Assessment: []61 yo female with recurrent cancer,admitted with uncontrolled pain and 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 Biopsy of her right lung lesion planned for this afternoon to determine further plan of care. Plan: []1. Pain: improved and has not required IV med in 24 hours, will add PO with goal of control on PO meds -- recommend nausea meds before 2. Cough: add nebs 3. Partial paralysis: goal of improved function with RT, however may not improve leg d/t timing, will request PT eval. and treat 4. Constipation: recommend scheduling laxative for now 5. Cancer: biopsy planned today, therapy dependent on path
[2017-05-08] MEDS: Albuterol/Ipratropium NEB.SOL* Albuterol 2.5 MG/Ipratropium 0.5 MG 3 ML INH PRN ×2 (11:53→17:25)
--- NOTE | 2017-05-08 14:37 | RAD ---
INDICATION: Metastatic tumor with multifocal RIGHT hemithorax pleural studding. COMPARISON: May 01, 2017 PET/CT. Written informed consent obtained. Timeout performed. PROCEDURE: Pleural-based nodule at the RIGHT approximate 11th posterior intercostal space visualized on preliminary ultrasound scanning with the patient sitting leaning forward. Following routine aseptic skin prep the soft tissues extending from the skin to the nodule were anesthetized with 3 mL 1% lidocaine. Fine-needle aspiration performed under direct ultrasound guidance with a 25-gauge needle. A second pass was made with a new 25-gauge needle. Samples deemed sufficient by pathology. Sterile dressing applied. Procedure well tolerated without immediate complication. IMPRESSION: Successful ultrasound-guided RIGHT pleural fine-needle aspiration.
[2017-05-08] MEDS: Ondansetron INJ* 2 MG/ML VIAL IV PRN (14:46)
[2017-05-08] MEDS: Famotidine TAB* 20 MG PO SCH (17:09)
[2017-05-08] MEDS: LORazepam INJ* 2 MG/ML 1 ML VIAL IV PUSH PRN (17:57)
[2017-05-08] MEDS: traZODone TAB* 50 MG TAB PO SCH (20:42)
[2017-05-08] MEDS: Bisoprolol TAB* 5 MG PO SCH (20:43)
[2017-05-08] MEDS: oxyCODONE TAB* 5 MG TAB PO PRN (23:21)
[2017-05-08] MEDS: PROCHLORPERAZINE INJ 5 MG/ML 2 ML VIAL IV PRN (23:21)
[2017-05-09] MEDS: oxyCODONE SR TAB(*) 15 MG TAB.SR PO SCH ×4 (00:23→23:57)
--- NOTE | 2017-05-09 02:54 | RADMED ---
RADIATION ONCOLOGY INPATIENT CONSULTATION NOTE: DATE OF SERVICE: 05/06/17 - ROOM #413 DIAGNOSIS: New brain metastasis, presumably from lung cancer. HISTORY OF PRESENT ILLNESS: Rosangela Varghese is a 61-year-old woman who I treated in 2012 for limited stage small cell lung cancer. She received chemotherapy as well as thoracic radiation therapy, 4500 cGy at 150 cGy per fraction twice daily, completing radiating on 02/18/13, and subsequently received prophylactic cranial radiation, 2500 cGy, completed in May 2013. She was subsequently treated for breast cancer in 2015. A recent head CT from identified multiple enlarging hypermetabolic masses in the right upper lobe as well as right adrenal and bone metastasis. She developed right-sided weakness, and MRI scan of the brain performed earlier today shows multiple enhancing lesions concerning for brain metastasis with a lesion in the region of the left motor strip with substantial peritumoral edema. She has been ordered for dexamethasone and is referred urgently for consideration of palliative whole brain radiation therapy. PAST MEDICAL HISTORY: Lung cancer and breast cancer as on history of present illness. 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 MEDICATIONS: As per the inpatient record. ALLERGIES: MORPHINE. FAMILY HISTORY: Significant for her brother who had a brain tumor, as well as her mother with colon cancer and a sister with breast cancer. SOCIAL HISTORY: She is a former smoker and does not drink significant amount of alcohol. REVIEW OF SYSTEMS: As in the history of present illness. Otherwise, significant for some chest pain, otherwise a complete review of systems indicates only weakness. PHYSICAL EXAMINATION: Vital Signs: As in the electronic medical record. General: She is awake, alert, and oriented, in no acute distress. Normocephalic , atraumatic. Sclerae are anicteric. Neck: Supple. Full range of motion. Midline trachea. No mass palpable in the neck or thyroid. Lungs with symmetric air entry bilaterally. Cardiovascular: S1, S2 regular. Neurologic: Cranial nerves II through XII are intact. 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 PATHOLOGY AND RADIOLOGY: Reviewed. ASSESSMENT AND PLAN: Rosangela Varghese is a 61-year-old woman with multiple brain metastases in the setting of relapsed versus second primary lung cancer, biopsy pending. I did review the findings on her MRI scan with the patient and considerations for management, with the majority of our discussion focused on the use of palliative whole brain radiation therapy. She did receive prophylactic cranial radiation initially for her small cell lung cancer, and although there is some concern about cumulative dose from 2 courses of treatment and potential risks and side effects, which I reviewed with her in some detail, she does have a progressive acute neurological deficit, and with 4 years' time for recovery since her prior radiation therapy, I do think she is a candidate for additional palliative whole brain radiation therapy. I explained the logistics and rationale for that treatment including risks, benefits, and alternatives as well as the acute and long-term frequent and uncommon toxicities. She is tentatively inclined to proceed, but does want to review with her when she has a chance. He will be here in the morning. She is being started on steroids and I will see her as quickly as possible if she decides to proceed for CT simulation and treatment planning. For her situation , I recommend 3000 cGy at 250 cGy per fraction. Thank you for giving me the opportunity to participate in the care of this very pleasant patient. [id number]/[facility] #: [id number] JENN
[2017-05-09 07:49] LABS: Hematocrit 28 % (35-47); Hemoglobin 9.6 g/dl (12.0-16.0); Mean Corpuscular HGB Conc 34 g/dl (31-36); Mean Corpuscular Hemoglobin 30 pg (27-31); Mean Corpuscular Volume 90 fL (80-97); Mean Platelet Volume 8 um3 (7.4-10.4); Red Blood Count 3.16 10^6/ul (4.0-5.4); Red Cell Distribution Width 21 % (10.5-15); White Blood Count 5.2 10^3/ul (3.5-10.8)
[2017-05-09 08:12] LABS: Albumin 3.3 g/dL (3.2-5.2); BUN/Creatinine Ratio 11.7 (8-20); Calcium 9.5 mg/dL (8.6-10.3); EGFR African American 58.7 (>60); EGFR Non-African American 45.7 (>60); Globulin 2.7 g/dL (2-4); Total Bilirubin 0.3 mg/dL (0.2-1.0)
[2017-05-09] MEDS: BuPROPion XL* 150 MG TAB.XL PO SCH ×2 (08:23→20:24)
[2017-05-09] MEDS: Mometasone/Formoter 200/5 MDI INH SCH ×2 (08:33→20:37)
[2017-05-09] MEDS: Docusate CAP* 100 MG PO SCH ×2 (09:19→20:15)
[2017-05-09] MEDS: oxyCODONE TAB* 5 MG TAB PO PRN ×2 (09:19→17:11)
[2017-05-09] MEDS: Ondansetron INJ* 2 MG/ML VIAL IV SCH ×2 (09:20→20:14)
[2017-05-09] MEDS: Polyethylene Glycol 3350* 17 GM PACKET PO SCH (09:20)
[2017-05-09] MEDS: Dexamethasone IV* 4 MG/ML 1 ML (4 MG) IV SLOW PU SCH ×2 (09:20→20:14)
--- NOTE | 2017-05-09 10:49 | PN ---
Progress Note - Progress Note Date of Service: 05/09/17 SOAP: Subjective: []Doing better, has clear improvement of strength on right side. Can lift coffee cup, moving leg. Still not at baseline. Eating well with Dex, no BM in several days. Has not seen PT yet. Wants to go home as soon as possible. Pain is controlled on current medication. Albuterol (Ventolin Hfa Inhaler*) 2 puff INH Q6H PRN PRN Reason: WHEEZING Last Admin: 05/07/17 05:42 Dose: 2 puff Albuterol/Ipratropium (Duoneb (Albuterol 2.5 Mg/Ipratropium 0.5 Mg)) 1 neb INH [id number] AWAKE PRN PRN Reason: CONGESTION Last Admin: 05/08/17 17:25 Dose: 1 neb Bisacodyl (Dulcolax Supp*) [address] DAILY PRN PRN Reason: CONSTIPATION Last Admin: 05/09/17 09:20 Dose: 10 mg Bisoprolol Fumarate (Zebeta Tab*) 2.5 mg PO 2100 [facility] Last Admin: 05/08/17 20:43 Dose: 2.5 mg Bupropion HCl (Wellbutrin Xl *) 150 mg PO BID [facility] PRN Reason: Protocol Last Admin: 05/09/17 08:23 Dose: Not Given Dexamethasone Sodium Phosphate (Decadron Iv*) 8 mg IV SLOW PU BID [facility] Last Admin: 05/09/17 09:20 Dose: 8 mg Docusate Sodium (Colace Cap*) 100 mg PO BID [facility] Last Admin: 05/09/17 09:19 Dose: 100 mg Famotidine (Pepcid Tab*) 20 mg PO QPM [facility] Last Admin: 05/08/17 17:09 Dose: 20 mg Hydromorphone HCl (Dilaudid Injic*) 1 mg IV SLOW PU Q4H PRN PRN Reason: PAIN Last Admin: 05/06/17 18:11 Dose: 1 mg Lorazepam (Ativan Inj*) 0.5 mg IV PUSH Q4H PRN PRN Reason: Anxiety/nausea Last Admin: 05/08/17 17:57 Dose: 0.5 mg Mometasone Furoate/Formoterol Fumar (Dulera 200/5 Mdi*) 2 puff INH BID [facility] Last Admin: 05/09/17 08:33 Dose: 2 inh Ondansetron HCl (Zofran Inj*) 4 mg IV Q8H PRN PRN Reason: NAUSEA Last Admin: 05/08/17 14:46 Dose: 4 mg Ondansetron HCl (Zofran Inj*) 4 mg IV BID [facility] Last Admin: 05/09/17 09:20 Dose: 4 mg Oxycodone HCl (Roxycodone Tab*) 5 mg PO Q4H PRN PRN Reason: PAIN Last Admin: 05/09/17 09:19 Dose: 5 mg Oxycodone HCl (Oxycontin(*)) 15 mg PO Q8H [facility] Last Admin: 05/09/17 08:22 Dose: Not Given Polyethylene Glycol/Electrolytes (Miralax*) 17 gm PO DAILY [facility] Last Admin: 05/09/17 09:20 Dose: 17 gm Prochlorperazine Edisylate (Compazine Inj*) 10 mg IV Q6H PRN PRN Reason: NAUSEA/VOMITING Last Admin: 05/08/17 23:21 Dose: 10 mg Trazodone HCl (Desyrel Tab*) 50 mg PO BEDTIME [facility] Last Admin: 05/08/17 20:42 Dose: 50 mg Objective: [] Vital Signs Temp Pulse Resp BP Pulse Ox 97.9 F 84 18 120/61 96 05/09/17 07:48 05/09/17 07:48 05/09/17 09:19 05/09/17 07:48 05/09/17 07:48 HEENT - no thrush, no JVD, PERRLa Decreased BS but clear RRR S1S2 +BS NT, ND No edema Neuro - CN II-X intact. mild drift on right. stregnth 4/5 both sides. VF intact. Bx: adenocarcinoma, lung or breast. Assessment: []61 year old history of SSLC. 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 Suspect second lung adenocarcinoma but cannot rule out recurrent breast cancer at this time. She is tolerating XRT and has seen neurologic improvement with XRT. Plan: []1. 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 - Will change Dex to po 8 mg bid - Continue XRT, can be treated as out patient once more self sufficient. 2. Cancer. Discussed possible treatment and QOL. Options will depend on cancer of origin and options for targeted therapy. To early to tell at this time if she would be a candidate for traditional chemotherapy. No systemic therapy until completes XRT. Hospice is reasonable but she is not ready to stop treatment at this time. 3. Disp. PT today. To go home must be able to walk up 6 steps and be single assist to get out of bed. 4. Miralax today to move bowls.
[2017-05-09] MEDS ORDERED: Magnesium Hydroxide LIQ* 30 ML UDC PO PRN (11:42)
[2017-05-09] MEDS: Albuterol/Ipratropium NEB.SOL* Albuterol 2.5 MG/Ipratropium 0.5 MG 3 ML INH PRN ×3 (12:14→22:57)
[2017-05-09] MEDS: Famotidine TAB* 20 MG PO SCH (17:03)
[2017-05-09] MEDS: Ondansetron INJ* 2 MG/ML VIAL IV PRN (17:12)
[2017-05-09] MEDS: Bisoprolol TAB* 5 MG PO SCH (20:15)
[2017-05-09] MEDS: traZODone TAB* 50 MG TAB PO SCH (20:15)
[2017-05-10] MEDS: HYDROmorphone INJ* 1 MG/ML CARPUJECT SYRINGE IV SLOW PU PRN (04:32)
[2017-05-10] MEDS: Ondansetron INJ* 2 MG/ML VIAL IV PRN (04:35)
[2017-05-10 08:02] LABS: Hematocrit 30 % (35-47); Mean Corpuscular HGB Conc 33 g/dl (31-36); Mean Corpuscular Hemoglobin 30 pg (27-31); Mean Corpuscular Volume 90 fL (80-97); Mean Platelet Volume 8 um3 (7.4-10.4); Red Blood Count 3.36 10^6/ul (4.0-5.4); Red Cell Distribution Width 22 % (10.5-15); White Blood Count 6.8 10^3/ul (3.5-10.8)
[2017-05-10] MEDS: Ondansetron INJ* 2 MG/ML VIAL IV SCH ×2 (08:07→09:26)
[2017-05-10] MEDS: Dexamethasone IV* 4 MG/ML 1 ML (4 MG) IV SLOW PU SCH ×2 (08:08→09:26)
[2017-05-10] MEDS: Docusate CAP* 100 MG PO SCH ×2 (08:12→21:00)
[2017-05-10] MEDS: oxyCODONE SR TAB(*) 15 MG TAB.SR PO SCH ×3 (08:12→23:49)
[2017-05-10] MEDS: Polyethylene Glycol 3350* 17 GM PACKET PO SCH (08:16)
[2017-05-10] MEDS: BuPROPion XL* 150 MG TAB.XL PO SCH ×2 (08:19→20:55)
[2017-05-10] MEDS: Albuterol/Ipratropium NEB.SOL* Albuterol 2.5 MG/Ipratropium 0.5 MG 3 ML INH PRN ×3 (08:20→20:04)
[2017-05-10 08:25] LABS: Albumin 3.5 g/dL (3.2-5.2); Calcium 9.6 mg/dL (8.6-10.3); EGFR African American 58.7 (>60); EGFR Non-African American 45.7 (>60); Globulin 2.5 g/dL (2-4); Potassium 4.7 mmol/L (3.5-5.0); Total Bilirubin 0.4 mg/dL (0.2-1.0)
[2017-05-10] MEDS: Mometasone/Formoter 200/5 MDI INH SCH ×2 (08:26→19:58)
[2017-05-10] MEDS ORDERED: Ondansetron TAB* 4 MG PO SCH (09:00)
[2017-05-10] MEDS: Ondansetron TAB* 4 MG PO SCH ×2 (10:26→21:00)
[2017-05-10] MEDS: Dexamethasone TAB* 4 MG PO SCH ×2 (10:26→20:56)
[2017-05-10] MEDS: Famotidine TAB* 20 MG PO SCH (17:42)
[2017-05-10] MEDS: guaiFENesin LIQ* 100 MG/5 ML UDC PO PRN (17:42)
[2017-05-10] MEDS: traZODone TAB* 50 MG TAB PO SCH (20:56)
[2017-05-10] MEDS ORDERED: HYDROmorphone TAB* 2 MG PO PRN (21:00)
[2017-05-10] MEDS: Bisoprolol TAB* 5 MG PO SCH (21:10)
[2017-05-10] MEDS ORDERED: diPHENhydraMINE PO* 25 MG PO ONE (22:00)
[2017-05-11] MEDS: LORazepam TAB(*) 0.5 MG PO PRN ×2 (01:57→05:57)
[2017-05-11 05:39] LABS: Hematocrit 31 % (35-47); Hemoglobin 10.4 g/dl (12.0-16.0); Mean Corpuscular HGB Conc 33 g/dl (31-36); Mean Corpuscular Hemoglobin 30 pg (27-31); Mean Corpuscular Volume 89 fL (80-97); Mean Platelet Volume 8 um3 (7.4-10.4); Red Blood Count 3.52 10^6/ul (4.0-5.4); Red Cell Distribution Width 22 % (10.5-15); White Blood Count 5.5 10^3/ul (3.5-10.8)
[2017-05-11 05:54] LABS: Albumin 3.5 g/dL (3.2-5.2); BUN/Creatinine Ratio 19.7 (8-20); Calcium 9.7 mg/dL (8.6-10.3); EGFR African American 60.5 (>60); Globulin 2.4 g/dL (2-4); Potassium 4.9 mmol/L (3.5-5.0); Total Bilirubin 0.4 mg/dL (0.2-1.0); Total Protein 5.9 g/dL (6.4-8.9)
[2017-05-11] MEDS: oxyCODONE TAB* 5 MG TAB PO PRN (05:56)
[2017-05-11] MEDS: BuPROPion XL* 150 MG TAB.XL PO SCH ×2 (07:36→22:17)
[2017-05-11] MEDS: Dexamethasone TAB* 4 MG PO SCH ×2 (08:08→22:17)
[2017-05-11] MEDS: Ondansetron TAB* 4 MG PO SCH ×2 (08:08→22:16)
[2017-05-11] MEDS: oxyCODONE SR TAB(*) 15 MG TAB.SR PO SCH ×3 (08:08→23:08)
[2017-05-11] MEDS: Docusate CAP* 100 MG PO SCH ×2 (08:08→22:16)
[2017-05-11] MEDS: Polyethylene Glycol 3350* 17 GM PACKET PO SCH (08:10)
[2017-05-11] MEDS: Albuterol/Ipratropium NEB.SOL* Albuterol 2.5 MG/Ipratropium 0.5 MG 3 ML INH PRN ×2 (08:34→20:33)
[2017-05-11] MEDS: Mometasone/Formoter 200/5 MDI INH SCH ×2 (08:36→20:32)
[2017-05-11] MEDS ORDERED: diPHENhydraMINE PO* 25 MG ONE (15:17)
[2017-05-11] MEDS: guaiFENesin LIQ* 100 MG/5 ML UDC PO PRN (15:19)
[2017-05-11] MEDS: Famotidine TAB* 20 MG PO SCH (18:19)
[2017-05-11] MEDS: Bisoprolol TAB* 5 MG PO SCH (22:16)
[2017-05-11] MEDS: traZODone TAB* 50 MG TAB PO SCH (22:17)
[2017-05-11] MEDS: diPHENhydraMINE PO* 25 MG PO PRN (22:24)
[2017-05-12] MEDS: LORazepam TAB(*) 0.5 MG PO PRN ×2 (03:19→23:07)
[2017-05-12] MEDS: Albuterol/Ipratropium NEB.SOL* Albuterol 2.5 MG/Ipratropium 0.5 MG 3 ML INH PRN ×2 (04:14→17:53)
[2017-05-12 06:16] LABS: Hematocrit 33 % (35-47); Hemoglobin 10.9 g/dl (12.0-16.0); Mean Corpuscular HGB Conc 33 g/dl (31-36); Mean Corpuscular Hemoglobin 30 pg (27-31); Mean Corpuscular Volume 91 fL (80-97); Mean Platelet Volume 8 um3 (7.4-10.4); Red Blood Count 3.63 10^6/ul (4.0-5.4); White Blood Count 7.3 10^3/ul (3.5-10.8)
[2017-05-12 06:23] LABS: Comments Flag Yes
[2017-05-12 06:24] LABS: Red Cell Distribution Width 22 % (10.5-15)
[2017-05-12 07:19] LABS: Albumin 3.5 g/dL (3.2-5.2); BUN/Creatinine Ratio 23.7 (8-20); Calcium 9.4 mg/dL (8.6-10.3); EGFR African American 51.3 (>60); EGFR Non-African American 39.9 (>60); Globulin 2.4 g/dL (2-4); Total Bilirubin 0.4 mg/dL (0.2-1.0); Total Protein 5.9 g/dL (6.4-8.9)
[2017-05-12 07:27] LABS: Potassium 5.1 mmol/L (3.5-5.0)
[2017-05-12] MEDS: BuPROPion XL* 150 MG TAB.XL PO SCH ×2 (08:06→22:29)
[2017-05-12] MEDS: Dexamethasone TAB* 4 MG PO SCH ×2 (08:07→22:36)
[2017-05-12] MEDS: oxyCODONE SR TAB(*) 15 MG TAB.SR PO SCH ×3 (08:07→22:35)
[2017-05-12] MEDS: Docusate CAP* 100 MG PO SCH ×2 (08:08→22:35)
[2017-05-12] MEDS: diPHENhydraMINE PO* 25 MG PO PRN ×2 (08:08→19:41)
[2017-05-12] MEDS: Ondansetron TAB* 4 MG PO SCH ×2 (08:08→22:37)
[2017-05-12] MEDS: Polyethylene Glycol 3350* 17 GM PACKET PO SCH (08:08)
[2017-05-12] MEDS: Mometasone/Formoter 200/5 MDI INH SCH ×2 (08:44→20:52)
--- NOTE | 2017-05-12 14:57 | PN ---
Progress Note - Progress Note Date of Service: 05/12/17 SOAP: Subjective: []Feeling a lot better. Much better movement of right arm, right leg still very weak. Pain reasonably well controlled. Tolerating MRI Lots of confusion regarding AFO vs. needing to be fit for a 'boot'. Plan for to get ramp for home and has PT and home nursing set-up Medications: Albuterol (Ventolin Hfa Inhaler*) 2 puff INH Q6H PRN PRN Reason: WHEEZING Last Admin: 05/07/17 05:42 Dose: 2 puff Albuterol/Ipratropium (Duoneb (Albuterol 2.5 Mg/Ipratropium 0.5 Mg)) 1 neb INH [id number] AWAKE PRN PRN Reason: CONGESTION Last Admin: 05/12/17 04:14 Dose: 1 neb Bisacodyl (Dulcolax Supp*) 10 mg IN DAILY PRN PRN Reason: CONSTIPATION Last Admin: 05/09/17 09:20 Dose: 10 mg Bupropion HCl (Wellbutrin Xl *) 150 mg PO BID [facility] PRN Reason: Protocol Last Admin: 05/12/17 08:06 Dose: Not Given Dexamethasone (Decadron Tab*) 8 mg PO BID [facility] Last Admin: 05/12/17 08:07 Dose: 8 mg Diphenhydramine HCl (Benadryl Po*) 25 mg PO Q6H PRN PRN Reason: ITCHING Last Admin: 05/12/17 08:08 Dose: 25 mg Docusate Sodium (Colace Cap*) 100 mg PO BID [facility] Last Admin: 05/12/17 08:08 Dose: 100 mg Famotidine (Pepcid Tab*) 20 mg PO QPM [facility] Last Admin: 05/11/17 18:19 Dose: 20 mg Guaifenesin (Robitussin*) 5 ml PO Q4H PRN PRN Reason: COUGH Last Admin: 05/11/17 15:19 Dose: 5 ml Hydromorphone HCl (Dilaudid Tab*) 4 mg PO Q4H PRN PRN Reason: PAIN Lorazepam (Ativan Tab(*)) 0.5 mg PO Q4H PRN PRN Reason: ANXIETY/NAUSEA Last Admin: 05/12/17 03:19 Dose: 0.5 mg Magnesium Hydroxide (Milk Of Magnshakila Liq*) 30 ml PO Q4H PRN PRN Reason: CONSTIPATION Mometasone Furoate/Formoterol Fumar (Dulera 200/5 Mdi*) 2 puff INH BID [facility] Last Admin: 05/12/17 08:44 Dose: 2 puff Ondansetron HCl (Zofran Tab*) 4 mg PO BID [facility] Last Admin: 05/12/17 08:08 Dose: 4 mg Oxycodone HCl (Roxycodone Tab*) 5 mg PO Q4H PRN PRN Reason: PAIN Last Admin: 05/11/17 05:56 Dose: 5 mg Oxycodone HCl (Oxycontin(*)) 15 mg PO Q8H [facility] Last Admin: 05/12/17 08:07 Dose: 15 mg Polyethylene Glycol/Electrolytes (Miralax*) 17 gm PO DAILY [facility] Last Admin: 05/12/17 08:08 Dose: 17 gm Prochlorperazine Edisylate (Compazine Inj*) 10 mg IV Q6H PRN PRN Reason: NAUSEA/VOMITING Last Admin: 05/08/17 23:21 Dose: 10 mg Trazodone HCl (Desyrel Tab*) 50 mg PO BEDTIME [facility] Last Admin: 05/11/17 22:17 Dose: 50 mg Objective: [] Vital Signs Temp Pulse Resp BP Pulse Ox 97.8 F 87 18 107/64 92 05/12/17 12:35 05/12/17 12:35 05/12/17 12:35 05/12/17 12:35 05/12/17 12:35 A&Ox3, EOMI, TODD however right LE markedly weak with poor dorsa flexion Respirations even and non-labored without audible wheeze or rhonchi +PP=bilat., no edema Laboratory Results - last 24 hr 05/12/17 05/12/17 05:57 05:57 WBC 7.3 RBC 3.63 L Hgb 10.9 L Hct 33 L MCV 91 MCH 30 MCHC 33 RDW 22 H Plt Count 338 MPV 8 Neut % (Auto) 92.3 H Lymph % (Auto) 3.9 L [place] % (Auto) 3.7 Eos % (Auto) 0 Baso % (Auto) 0.1 Absolute Neuts (auto) 6.7 Absolute Lymphs (auto) 0.3 L Absolute Monos (auto) 0.3 Absolute Eos (auto) 0 Absolute Basos (auto) 0 Absolute Nucleated RBC 0.01 Nucleated RBC % 0.1 Sodium 135 Potassium 5.1 H Chloride 98 L Carbon Dioxide 26 Anion Gap 11 BUN 32 H Creatinine 1.35 H Est GFR ( Amer) 51.3 Est GFR (Non-Af Amer) 39.9 BUN/Creatinine Ratio 23.7 H Glucose 112 H Calcium 9.4 Total Bilirubin 0.40 AST 12 L ALT 13 Alkaline Phosphatase 64 Total Protein 5.9 L Albumin 3.5 Globulin 2.4 Albumin/Globulin Ratio 1.5 Assessment: []61 yo female with recurrent metastatic cancer currently receiving WBRT with improvement in neuro symptoms. She is ready for d/c however due to multiple issues (including a ramp at the home and mis-communication regarding potential need for a boot fit by orthotics) she will stay overnight for further PT evaluation of ambulatory ability. Plan: []PT eval and tx. Cont. RT D/C home tomorrow
[2017-05-12] MEDS: Famotidine TAB* 20 MG PO SCH (16:45)
[2017-05-12] MEDS: traZODone TAB* 50 MG TAB PO SCH (22:36)
[2017-05-12] MEDS ORDERED: diPHENhydraMINE PO* 25 MG PO ONE (23:00)
[2017-05-13] MEDS: diPHENhydraMINE PO* 25 MG PO PRN ×3 (04:26→19:24)
[2017-05-13] MEDS: HYDROmorphone TAB* 4 MG PO PRN ×3 (04:26→21:25)
[2017-05-13] MEDS: Albuterol/Ipratropium NEB.SOL* Albuterol 2.5 MG/Ipratropium 0.5 MG 3 ML INH PRN ×2 (08:07→20:11)
[2017-05-13] MEDS: Mometasone/Formoter 200/5 MDI INH SCH ×2 (08:08→20:09)
[2017-05-13] MEDS: Polyethylene Glycol 3350* 17 GM PACKET PO SCH (08:45)
[2017-05-13] MEDS: Ondansetron TAB* 4 MG PO SCH ×2 (08:46→21:15)
[2017-05-13] MEDS: oxyCODONE SR TAB(*) 15 MG TAB.SR PO SCH ×3 (08:46→23:56)
[2017-05-13] MEDS: Dexamethasone TAB* 4 MG PO SCH ×2 (08:46→21:15)
[2017-05-13] MEDS: Docusate CAP* 100 MG PO SCH ×2 (08:46→21:15)
[2017-05-13] MEDS: BuPROPion XL* 150 MG TAB.XL PO SCH ×2 (08:47→21:16)
[2017-05-13] MEDS: LORazepam TAB(*) 0.5 MG PO PRN ×2 (12:57→21:25)
[2017-05-13] MEDS: Famotidine TAB* 20 MG PO SCH (17:35)
[2017-05-13] MEDS: traZODone TAB* 50 MG TAB PO SCH (21:15)
[2017-05-14] MEDS: HYDROmorphone TAB* 4 MG PO PRN ×3 (01:40→11:29)
[2017-05-14] MEDS: LORazepam TAB(*) 0.5 MG PO PRN ×2 (01:40→05:56)
[2017-05-14] MEDS: diPHENhydraMINE PO* 25 MG PO PRN ×2 (05:55→12:15)
[2017-05-14] MEDS: Mometasone/Formoter 200/5 MDI INH SCH (08:06)
[2017-05-14] MEDS: Albuterol/Ipratropium NEB.SOL* Albuterol 2.5 MG/Ipratropium 0.5 MG 3 ML INH PRN ×2 (08:08→12:19)
[2017-05-14] MEDS: Ondansetron TAB* 4 MG PO SCH (11:29)
[2017-05-14] MEDS: Docusate CAP* 100 MG PO SCH ×2 (11:29→12:15)
[2017-05-14] MEDS: Dexamethasone TAB* 4 MG PO SCH ×2 (11:29→12:15)
[2017-05-14] MEDS: oxyCODONE SR TAB(*) 15 MG TAB.SR PO SCH ×2 (11:29→17:59)
[2017-05-14] MEDS: Polyethylene Glycol 3350* 17 GM PACKET PO SCH (12:15)
[2017-05-14] MEDS: BuPROPion XL* 150 MG TAB.XL PO SCH (12:16)
[2017-05-14 14:42] LABS: Hematocrit 36 % (35-47); Hemoglobin 11.5 g/dl (12.0-16.0); Mean Corpuscular HGB Conc 32 g/dl (31-36); Mean Corpuscular Hemoglobin 30 pg (27-31); Mean Corpuscular Volume 91 fL (80-97); Mean Platelet Volume 8 um3 (7.4-10.4); Red Blood Count 3.91 10^6/ul (4.0-5.4); White Blood Count 9.5 10^3/ul (3.5-10.8)
[2017-05-14 14:45] LABS: Comments Flag Yes; Red Cell Distribution Width 22 % (10.5-15)
[2017-05-14 14:57] LABS: BUN/Creatinine Ratio 25.6 (8-20); Calcium 9.9 mg/dL (8.6-10.3); Potassium 4.7 mmol/L (3.5-5.0)
[2017-05-14 15:22] VITALS: BP 109/60
--- NOTE | 2017-05-14 16:18 | DS ---
- Discharge Summary Admission Date: Discharge Date: Discharge Diagnosis: 1. Adenocarcinoma: Breast primary, triple negative, currently receiving WBRT 2. Hemiparesis, right: 2/2 brain metastasis, improved since initiation of WBRT, though still limited right lower extremity movement Discharge medications: 1. Albuterol/ipratropium 2.5/0.5mg 1 neb q6hrs while awake 2. Bisacodyl 10 mg TN qday PRN constipation 3. Bupropion XL 150 mg PO BID 4. Dexamethasone 8 mg PO BID 5. Benadryl 25 mg PO q6hrs PRN itching 6. Lorazepam 0.5 mg PO q4hrs PRN anxiety/nausea 7. MOM 30 mL q4hrs PRN constipation 8. Oxycontin 15 mg PO q8hrs 9. Miralax 17u gm PO daily 10. Zofran 4mg PO q4hrs PRN nausea 11. Hydromorphone 4 mg PO q4hrs PRN pain 12. Famotidine 20 mg PO daily 13. Albuterol inha. 2 puffs q6hrs PRN wheezing 14. Trazodone 50 mg PO qHS 15. Advair 250/50 1 puff inh. BID 16. Colace 200 mg PO BID Hospital Course: Please see admission note for full H&P, however briefly Mrs. Varghese is well known to our service due to her unfortunate history which includes diagnosis of Small Cell Lung Cancer treated with curative intent in 2012 (including PCI) and early stqage breast cancer diagnosed in the summer of 2015 treated with local therapy alone. She presented to the office on 05/05/17 following initiation of work-up for recurrent (vs. new) cancer in the lung, with progressive weakness, uncontrolled pain, and nausea. She was admitted for pain control and biopsy of lung mass. During exam new right lower extremity weakness prompted concern for spinal metastasis, therefore an MRI was ordered of the thoracic and lumbar spine. Apparently, due to pain, the patient was unable to stay still and this was not obtained the night of admission. The following day the patient had marked progression of weakness now including the right upper extremity and a STAT MRI of the brain was also ordered. MRI revealed multiple enhancements of the left inferior cerebellum consistent with metastatic disease, the spine was negative. Dr. Mcnulty of radiation oncology was consulted and whole brain RT was initiated 05/07/17. Ultrasound guided lung biopsy was obtained on 05/08. By 05/10/17 the patient has marked improvement in her right upper extremity strength and movement. Physical Therapy was consulted on 05/12 and the patient has been moving well with assistive devices. The patient and her very much want her to be d/c'd home and they have had a ramp installed. Mrs. Varghese's pain has been moderately controlled in the hospital though with less nausea and she feels comfortable being discharged with current PO medications. This AM she was somewhat "groggy" however complained of no sleep due to a new roommate and continues to want to go home. Biopsy results were reviewed 05/[address] Parson and questions were answered at length today including options for treatment versus comfort measures only. Mrs. Varghese is currently a DNR and would like to maintain this on discharge. While her overall prognosis is guarded, labs today are stable and both she and her feel she will benefit from going home. Her neuro status has improved overall since admission and her pain is stable. She will be discharged with oxycodone ER TID, hydromorphine PRN, dexamethasone 8 mg PO BID (with plan for taper following RT) , and continuation of her home meds. She will continue daily RT (tomorrow @ 1345) and will follow-up with Dr. Garza 05/22 @ 1700 to discuss further treatment options. Plan of care was reviewed at length with the patient and . >60 min spent with >50% face to face counseling
[2017-05-14] MEDS: Famotidine TAB* 20 MG PO SCH (17:59)
== END 2017-05-14 18:20 | disposition home or self-care (01) | DRG 41 ==
LOC: MED 14:25 → OBSVTOIN 14:25
PROVIDERS: ADMIT Internal Medicine Hematology & Oncology; ATTEND Internal Medicine Hematology & Oncology
DX: C79.31 Secondary malignant neoplasm of brain (principal); C79.81 Secondary malignant neoplasm of breast; G81.91 Hemiplegia, unspecified affecting right dominant side; I87.1 Compression of vein; C34.91 Malignant neoplasm of unspecified part of right bronchus or lung; J32.9 Chronic sinusitis, unspecified; R63.0 Anorexia; M21.371 Foot drop, right foot; K59.00 Constipation, unspecified; J44.9 Chronic obstructive pulmonary disease, unspecified; Z90.12 Acquired absence of left breast and nipple; Z90.710 Acquired absence of both cervix and uterus; Z86.73 Personal history of transient ischemic attack (TIA), and cerebral infarction without residual deficits; Z80.0 Family history of malignant neoplasm of digestive organs; Z80.3 Family history of malignant neoplasm of breast; Z83.3 Family history of diabetes mellitus
CPT/HCPCS: 0521F; 1036F; 1125F; 36415; 36592; 70553; 72156; 72158; 76604; 76942; 77014; 77280; 77290; 77307; 77334; 77336; 77370; 77387; 77412; 80048; 80053; 85025; 85610; 85730; 88172; 88173; 88305; 88341; 88342; 88360; 94640; 94760; 96361; 96374; 99214; 99223; 99231; 99232; A9270-GY; A9579; G8427; J0780; J1100; J1170; J1644; J2060; J2405; J8540